=== PATIENT | male | born 2005 | race Two or more races ===

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

== ENCOUNTER 2025-03-30 15:43 | Emergency (ER) | payer MEDICAID, OTHER | END 2025-03-30 16:15 | disposition home or self-care (01) | LOC: JP.ED 15:43 | DX: T16.1XXA Foreign body in right ear, initial encounter (principal); Z79.899 Other long term (current) drug therapy; W44.8XXA Other foreign body entering into or through a natural orifice, initial encounter | CPT/HCPCS: 69200; 99282 ==